=== PATIENT | female | born 1990 | race Two or more races ===

== ENCOUNTER 2017-03-04 23:15 | Emergency (ER) | payer MEDICAID ==
[2017-03-05] MEDS ORDERED: Sodium Chloride 0.9% 1,000 ML IV STA (00:12)
--- NOTE | 2017-03-05 00:22 | ED PDOC ---
HPI: Abdomen Time Seen by Provider: 03/04/17 23:26 Chief Complaint (Nursing): Abdominal Pain Chief Complaint (Provider): abdominal pain History Per: Patient, Human Resource Advisor History/Exam Limitations: no limitations Onset/Duration Of Symptoms: Hrs Current Symptoms Are (Timing): Still Present Location Of Pain/Discomfort: Epigastric Quality Of Discomfort: Sharp, "Pain" Associated Symptoms: denies: Fever, Chills, Nausea, Vomiting, Diarrhea Additional History Per: Patient Additional Complaint(s): 26 y/o female presents for eval of acute onset epigastric abdominal pain x 3 hours. Patient states she was eating rice and beans when pain started. Denies fever, nausea/vomiting, chest pain, shortness of breath, palpitations, changes in bowel movements, dysuria, hematuria. Patient states she gave vaginally 5 days ago and had to have D&C after due to complications with placenta. Past Medical History Reviewed: Historical Data, Nursing Documentation, Vital Signs Vital Signs: Last Vital Signs Temp 98.1 F 03/05/17 01:34 Pulse 94 H 03/05/17 01:34 Resp 16 03/05/17 01:34 BP 114/86 03/05/17 01:34 Pulse Ox 100 03/05/17 01:34 - Medical History PMH: No Chronic Diseases - Surgical History Surgical History: No Surg Hx - Family History Family History: States: Unknown Family Hx - Home Medications Home Medications: Ambulatory Orders Medication Instructions Recorded Famotidine [Pepcid] 20 mg PO BID #20 tab 03/05/17 - Allergies Allergies/Adverse Reactions: Allergies Allergy/AdvReac Type Severity Reaction Status Date / Time No Known Allergies Allergy Verified 03/04/17 23:22 Review of Systems ROS Statement: Except As Marked, All Systems Reviewed And Found Negative Gastrointestinal: Positive for: Abdominal Pain Physical Exam - Reviewed Nursing Documentation Reviewed: Yes Vital Signs Reviewed: Yes - Physical Exam Appears: Positive for: Well, Non-toxic, Uncomfortable Head Exam: Positive for: ATRAUMATIC, NORMAL INSPECTION, NORMOCEPHALIC Skin: Positive for: Normal Color Eye Exam: Positive for: Normal appearance ENT: Positive for: Normal ENT Inspection Cardiovascular/Chest: Positive for: Regular Rate, Rhythm Respiratory: Positive for: Normal Breath Sounds Gastrointestinal/Abdominal: Positive for: Bowel Sounds, Soft, Tenderness (worse in epigastric area, mild RUQ, LUQ tenderness. No RLQ, suprapubic, LLQ tenderness ') Back: Positive for: Normal Inspection Extremity: Positive for: Normal ROM Neurologic/Psych: Positive for: Alert, Oriented - Laboratory Results Result Diagrams: 03/05/17 00:40 03/05/17 00:40 - ECG O2 Sat by Pulse Oximetry: 98 - Progress ED Course And Treament: labs, u/s EXAM: US Abdomen Limited, Right Upper Quadrant CLINICAL HISTORY: 26 years old, female; Pain; Abdominal pain; Epigastric; Additional info: Upper abdominal pain TECHNIQUE: Real-time ultrasound of the right upper quadrant with image documentation. EXAM DATE/TIME: 03/05/2017 12:14 AM COMPARISON: No relevant prior studies available. FINDINGS: There is a negative sonographic Vasquez's sign per interventional technologist. No gallstones. No pericholecystic fluid. The gallbladder wall measures 2 mm which is within normal limits. The common bile duct measures 4 mm which is within normal limits. The liver is normal. The pancreas is incompletely visualized. No right hydronephrosis. The right kidney measures 11 cm in length. IMPRESSION: No acute findings. On re-eval, patient states pain resolved. Case discussed with ED attending Dr. Long; agrees with plan to d/c. Patient educated on anemia; states she is aware due to placenta issues and recent D&C. States she is taking iron twice daily. Denies headache, dizziness, chest pain, shortness of breath, palpitations. Vitals stable. Patient educated on findings, discharged with rx Pepcid. Advised follow up PMD 2-3 days. Continue iron pills. Return to ED for worsening/concerning symptoms. Disposition - Clinical Impression Clinical Impression: Abdominal pain, Anemia - Patient ED Disposition Is Patient to be Admitted: No Counseled Patient/Family Regarding: Studies Performed, Diagnosis, Need For Followup, Rx Given - Disposition Referrals: [facility] [Outside] Disposition: Routine/Home Disposition Time: 01:47 Condition: IMPROVED Prescriptions: Famotidine [Pepcid] 20 mg PO BID #20 tab Instructions: Abdominal Pain (ED), Gastritis (ED), Anemia (ED) Print Language: BULGARIAN
[2017-03-05 00:45] LABS: BASO % 0.5 % (0.0-2.0); EOS # 0.2 K/uL (0.0-0.7); EOS % 2.6 % (0.0-4.0); HEMATOCRIT 23.1 % (34.0-47.0); LYMPH # 1.7 K/uL (1.0-4.3); LYMPH % 17.6 % (20.0-40.0); MEAN CELL VOLUME 94.7 fl (81.0-99.0); MEAN CORPUSCULAR HEMOGLOBIN 32.2 pg (27.0-31.0); MEAN PLATELET VOLUME 7.6 fl (7.2-11.7); MONO # 0.6 K/uL (0.0-0.8); MONO % 6.3 % (0.0-10.0); NEUT # 6.9 K/uL (1.8-7.0); NRBC % 0.1 % (0.0-0.0); RED CELL DISTRIBUTION WIDTH 13.5 % (11.5-14.5); WHITE BLOOD COUNT 9.4 K/uL (4.8-10.8)
[2017-03-05 00:54] LABS: ALB/GLOB RATIO 0.9 (1.0-2.1); ALKALINE PHOSPHATASE 153 U/L (38-126); ALT/SGPT 56 U/L (9-52); AST/SGOT 120 U/L (14-36); BILIRUBIN,TOTAL 0.7 mg/dl (0.2-1.3); BLOOD UREA NITROGEN 9 mg/dl (7-17); CALCIUM 8.8 mg/dL (8.4-10.2); CARBON DIOXIDE 21 mmol/L (22-30); CHLORIDE 109 mmol/L (98-107); GFR AFRICAN-AMERICAN > 60; GLUCOSE,RANDOM 86 mg/dL (65-105); LIPASE 104 U/L (23-300); POTASSIUM 3.6 MMOL/L (3.6-5.0); SODIUM 138 mmol/l (132-148); TOTAL PROTEIN 5.8 G/DL (6.3-8.2)
[2017-03-05 01:06] LABS: PARTIAL THROMBOPLASTIN TIME 23.1 SECONDS (23.3-32.5)
--- NOTE | 2017-03-05 01:08 | US ---
EXAM: US Abdomen Limited, Right Upper Quadrant CLINICAL HISTORY: 26 years old, female; Pain; Abdominal pain; Epigastric; Additional info: Upper abdominal pain TECHNIQUE: Real-time ultrasound of the right upper quadrant with image documentation. EXAM DATE/TIME: 03/05/2017 12:14 AM COMPARISON: No relevant prior studies available. FINDINGS: There is a negative sonographic Vasquez's sign per cytotechnologist/cytology supervisor. No gallstones. No pericholecystic fluid. The gallbladder wall measures 2 mm which is within normal limits. The common bile duct measures 4 mm which is within normal limits. The liver is normal. The pancreas is incompletely visualized. No right hydronephrosis. The right kidney measures 11 cm in length. IMPRESSION: No acute findings.
[2017-03-05 01:35] VITALS: BP 114/86; PULSE 94; RESP 16; TEMP 98.1
[2017-03-05 01:46] VITALS: O2SAT 98
== END 2017-03-05 01:53 | disposition home or self-care (01) ==
LOC: H.ER 23:15
DX: R10.9 Unspecified abdominal pain (principal); D64.9 Anemia, unspecified